=== PATIENT | male | born 1980 | race Caucasian/White ===

== ENCOUNTER 2019-05-30 15:22 | Emergency (ER) | payer SELFPAY ==
[2019-05-30] MEDS ORDERED: ONDANSETRON HCL/PF 4 MG/ 2ML VIAL IVP ONE (15:34)
[2019-05-30] MEDS ORDERED: fentaNYL CITRATE/PF 100 MCG/2 ML INJ. IV ONE ×3 (15:34→17:55)
[2019-05-30] MEDS ORDERED: fentaNYL CITRATE/PF 100 MCG/2 ML INJ. ONE (15:35)
[2019-05-30] MEDS ORDERED: ONDANSETRON HCL/PF 4 MG/ 2ML VIAL ONE (15:36)
--- NOTE | 2019-05-30 15:39 | ED Physician Documentation ---
Fall - HISTORIAN Historian: patient - HPI Chief Complaint: Fall ("bucked off horse") Additional Information: Patient is a 38 year old male that presents to the ER via w/c with c/o being thrown off a horse. He c/o left hip pain when bearing weight. He is able bend the left knee and raise to a 90 degree without discomfort but has severe pain when bring the leg back down. He also has low lumbar back pain. He denies any head injury, no cervical pain, no thoracic lumbar pain or rib pain, no tenderness to the abdomen. Cousin that is with patient witnessed event- patient was on the horse running; pulled the reign to stop and his saddle fell off. Onset: just prior to arrival Where: family Context: other (fall off horse) r: moderate Associated Symptoms:: denies: no loss of consciousness Location of Pain/Injury: lower back, hip. denies: head, neck Injury to Right Extremity: none Injury to Left Extremity: hip - ROS CONST: no problems NEURO: anxiety MS/SKIN/LYMPH: back pain. denies: neck pain EYES/ENT: none CVS/RESP: none GI/: denies: nausea, vomiting - PAST HX Past History: other (left lower lobectomy due to frequent pneumonia 17 years ago, choly) Immunizations: UTD Allergies/Adverse Reactions: Allergies Allergy/AdvReac Type Severity Reaction Status Date / Time ceftriaxone [From Rocephin] Allergy Verified 05/30/19 16:16 lansoprazole [From Prevacid] Allergy Verified 05/30/19 16:16 Penicillins Allergy Verified 05/30/19 16:16 Home Medications: Ambulatory Orders Medication Instructions Recorded Albuterol Sulfate [Albuterol 2 puff INH Q6 PRN 05/30/19 Sulfate Hfa] - SOCIAL HX Smoking History: greater than 1 pack/day Alcohol Use: occasionally Drug Use: marijuana - FAMILY HX Family History: none - REVIEWED ASSESSMENTS Nursing Assessment Reviewed: Yes Vitals Reviewed: Yes Progress - Progress Progress: 18:[address] Ulloa at the [facility] and no treatment is needed; they suggest pain medication and follow up Spoke with he stated pain medication and follow up ED Results Lab/Radiology - Radiology Radiology Impressions: CT lumbar spine History: PT STATES FELL OFF OF HORSE, SEVERE LEFT LOWER BACK AND HIP PAIN (Hx) / ITS.REASON "bucked off horse" lumbar pain no comparison studies Mildly displaced fractures of the left L2, L3, L4 transverse processes with adjacent hematoma and fat stranding. Normal appendix. Bilateral nonobstructing renal calculi. Aortic calcification Impression: No dislocation. Mildly displaced acute fractures of the left L2, L3 and L4 transverse processes is noted with adjacent hematoma. Bilateral nonobstructing renal calculi are present. Electronically signed on May 30, 2019 5:16:12 PM CDT by: Marie Ignacio CT pelvis History: PT STATES FELL OFF OF HORSE, SEVERE LEFT LOWER BACK AND HIP PAIN no prior comparison studies Left lower lumbar transverse process fractures are incompletely imaged Intact pubic symphysis, acetabulum Extensive fat stranding in the left lower back and gluteal region. Sacroiliac joints are intact Prostatic calcification is present with prostatomegaly. Redundant colon, normal appendix. Atherosclerotic aorta. Impression: 1. Lower lumbar left transverse process fractures are incompletely evaluated on this study. There is fat stranding and hematoma in the left gluteal region. No obvious other pelvic fractures identified 2. Prostatic calcification and prostatomegaly can be evaluated with serum PSA. Electronically signed on May 30, 2019 5:22:31 PM CDT by: Marie Ignacio Chest 1 view and left ribs 1 view Date of Exam: May 30, 2019. History: PT STATES LEFT UPPER RIB PAIN AFTER FALLING FROM HORSE TODAY; ONLY UPPER AP RIBS AND AP CHEST IMAGES WERE OBTAINED DUE TO PATIENT BEING UNABLE TO TOLERATE PAIN; HX OF LOBECTOMY (Hx) / Findings: Left thoracotomy changes are present. There is no evidence of pneumothorax. No acute rib fracture is identified, however, a complete ribs series is not provided. The cardiac and mediastinal silhouettes are normal. The trachea is midline. Surgical clips are present adjacent to the left hilum. Impression: No acute cardiopulmonary abnormality. No acute left rib fracture. Left thoracotomy changes. - Orders Orders: ED Orders Category Date Time Status Place IV Lock 1T Care 05/30/19 15:34 Active BILAT HIPS 2V (W/PEL IF DONE) [RAD] Stat Exams 05/30/19 Ordered L SPINE 2 OR 3 VIEWS [RAD] Stat Exams 05/30/19 Ordered CBC/PLATELET/DIFF Routine Lab 05/30/19 Ordered CMP Routine Lab 05/30/19 Ordered Ondansetron HCl/Pf [Zofran] Med 05/30/19 15:34 Discontinued 4 mg IVP NOW ONE fentaNYL CITRATE/PF [Sublimaze] Med 05/30/19 15:34 Discontinued 50 mcg IV NOW ONE Fall Physical Exam - Physical Exam General Appearance: alert, moderate distress Head: non-tender, no swelling, no obvious injury Neck: non-tender Eye: NANETTE, lids & conjunct. nml ENT: nml external inspection, no dental injury, no oral injury, airway nml Resp/CVS: chest non-tender, no ecchymosis, breath sounds nml, heart sounds nml Abdomen: soft, normal bowel sounds, non-tender Neuro: oriented x3, CN's nml as tested, sensation nml, motor nml, mood/affect nml, hoeing row boss nml, hoeing row boss symmetrical Skin: color nml Back: decreased range of motion, vertebral tenderness Extremities: painful weight bearing, other (left hip tender) Joint: limited ROM, painful, unable to bear weight - Jeni Coma Score Eyes Open: Spontaneous Speech: Oriented Motor: Obeys Commands Discharge Clincal Impression: Mildly displaced acute fx L2-4 transvers Referrals: Primary Doctor,No [Primary Care Provider] - 2 Days Additional Instructions: You have Mildly displaced fractures of the left L2, L3, L4 transverse processes Alternate Tylenol and Ibuprofen for pain (Take 800mg of Ibuprofen every 8 hours for 24 hours and then as needed) Take Tramadol 50 mg by mouth every 6 hours as needed for breakthrough pain Take Flexeril 5 mg by mouth every 8 hours as needed for muscle spasms Use heating pad; may apply icy hot, bengay, or salonpas No lifting over 10 pounds Do not bend at the waist; bend at the knees when picking something up Will send referral in for you to follow up with Ortho here at [facility] Condition: Good Disposition: 01 HOME, SELF-CARE Decision to Admit: NO Decision Time: 19:22
[2019-05-30 16:50] LABS: BASOPHILS % 0.6 % (0.0-1.5); NEUTROPHILS # 8.1 # k/uL (1.4-7.7)
[2019-05-30 16:59] LABS: eGFR (Non-African) > 60
--- NOTE | 2019-05-30 18:12 | Diagnostic Imaging Report ---
IVORY SANTOS [facility] [address] [facility] [address] [place] [address]. [id number] Report Submission Date: May 30, 2019 5:16:12 PM CDT Patient Study Name: BASSAM CORTES Date: May 30, 2019 3:57:12 PM CDT Modality Type: CT\\SR Gender: M Description: CT L-SPINE W/O CONTRAS : 76 Institution: [facility] Physician: IVORY SANTOS CT lumbar spine History: PT STATES FELL OFF OF HORSE, SEVERE LEFT LOWER BACK AND HIP PAIN (Hx) / ITS.REASON "bucked off horse" lumbar pain no comparison studies Mildly displaced fractures of the left L2, L3, L4 transverse processes with adjacent hematoma and fat stranding. Normal appendix. Bilateral nonobstructing renal calculi. Aortic calcification Impression: No dislocation. Mildly displaced acute fractures of the left L2, L3 and L4 transverse processes is noted with adjacent hematoma. Bilateral nonobstructing renal calculi are present. Electronically signed on May 30, 2019 5:16:12 PM CDT by: Marie KAMARA
--- NOTE | 2019-05-30 18:13 | Diagnostic Imaging Report ---
IVORY SANTOS [facility] [address] [facility] [address] [place], [place]. [address] Report Submission Date: May 30, 2019 5:22:31 PM CDT Patient Study Name: BASSAM CORTES Date: May 30, 2019 4:02:17 PM CDT Modality Type: CT\SR Gender: M Description: CT PELVIS W/O CONTRAST : 76 Institution: [facility] Physician: IVORY SANTOS CT pelvis History: PT STATES FELL OFF OF HORSE, SEVERE LEFT LOWER BACK AND HIP PAIN no prior comparison studies Left lower lumbar transverse process fractures are incompletely imaged Intact pubic symphysis, acetabulum Extensive fat stranding in the left lower back and gluteal region. Sacroiliac joints are intact Prostatic calcification is present with prostatomegaly. Redundant colon, normal appendix. Atherosclerotic aorta. Impression: 1. Lower lumbar left transverse process fractures are incompletely evaluated on this study. There is fat stranding and hematoma in the left gluteal region. No obvious other pelvic fractures identified 2. Prostatic calcification and prostatomegaly can be evaluated with serum PSA. Electronically signed on May 30, 2019 5:22:31 PM CDT by: Marie KAMARA
--- NOTE | 2019-05-30 18:14 | Diagnostic Imaging Report ---
IVORY SANTOS [facility] [address] [facility] [address] [place], [place]. [address] Report Submission Date: May 30, 2019 5:57:22 PM CDT Patient Study Name: BASSAM CORTES Date: May 30, 2019 5:19:34 PM CDT Modality Type: DX Gender: M Description: RIBS UNILAT W/ PA CHEST : 76 Institution: [facility] Physician: IVORY SANTOS Chest 1 view and left ribs 1 view Date of Exam: May 30, 2019. History: PT STATES LEFT UPPER RIB PAIN AFTER FALLING FROM HORSE TODAY; ONLY UPPER AP RIBS AND AP CHEST IMAGES WERE OBTAINED DUE TO PATIENT BEING UNABLE TO TOLERATE PAIN; HX OF LOBECTOMY (Hx) / Findings: Left thoracotomy changes are present. There is no evidence of pneumothorax. No acute rib fracture is identified, however, a complete ribs series is not provided. The cardiac and mediastinal silhouettes are normal. The trachea is midline. Surgical clips are present adjacent to the left hilum. Impression: No acute cardiopulmonary abnormality. No acute left rib fracture. Left thoracotomy changes. Electronically signed on May 30, 2019 5:57:22 PM CDT by: Phillip KAMARA
[2019-05-30] MEDS ORDERED: CYCLOBENZAPRINE HCL 10 MG TABLET PO ONE ×2 (18:31→18:33)
[2019-05-30] MEDS ORDERED: traMADol HCL 50 MG TABLET PO ONE (18:31)
[2019-05-30] MEDS ORDERED: traMADol HCL 50 MG TABLET ONE (18:33)
[2019-05-30 19:00] VITALS: BP 110/62
[2019-06-01 08:07] LABS: APPEARANCE,URINE CLEAR (CLEAR); COLOR,URINE YELLOW (YELLOW); OCCULT BLOOD,URINE NEGATIVE (NEGATIVE); PH URINE 5.5 (5.0 - 8.0); UROBILINOGEN URINE 0.2 Eu (0.2-1.0)
== END 2019-05-30 19:00 | disposition home or self-care (01) ==
LOC: ED 15:22
DX: S32.028A Other fracture of second lumbar vertebra, initial encounter for closed fracture (principal); S32.038A Other fracture of third lumbar vertebra, initial encounter for closed fracture; S32.048A Other fracture of fourth lumbar vertebra, initial encounter for closed fracture; V80.010A Animal-rider injured by fall from or being thrown from horse in noncollision accident, initial encounter; Y99.8 Other external cause status
CPT/HCPCS: 71101; 72131; 72192; 80053; 85025; 96374; 96375; 96376; 99284; J2405; J3010; 81002; S1016